=== PATIENT | female | born 1970 | race Caucasian/White ===

== ENCOUNTER 2018-03-29 12:24 | Outpatient (CLI) | payer OTHER ==
--- NOTE | 2018-03-29 14:15 | RAD ---
THREE VIEWS RIGHT THUMB: History: Fall with pain. FINDINGS: AP, lateral, and oblique views right thumb obtained. Three views of the right thumb demonstrates no significant evidence of right thumb fractures, subluxa tions, or bony lesions. IMPRESSION: Normal three view right thumb with no evidence of acute fracture seen. POS: [facility]
== END 2018-03-29 12:25 | disposition home or self-care (01) ==
LOC: BICRAD 12:24
PROVIDERS: ATTEND Family Medicine
DX: M79.644 Pain in right finger(s) (principal)